=== PATIENT | female | born 1970 | race Caucasian/White ===

== ENCOUNTER → 2020-07-25 | Outpatient (REF) | LOC: M EMPSSV 06:50 | PROVIDERS: ATTEND Family Medicine | DX: Z20.828 Contact with and (suspected) exposure to other viral communicable diseases (principal) ==

== ENCOUNTER → 2020-09-18 | Outpatient (REF) | payer SELFPAY ==
[~2020-09-18] MED LIST: KETO10TAB PO; MEDR4PAK PO; SYMB16INH
== END ==
LOC: M LABSMTC 11:53 → EDSTATUS 11:55
PROVIDERS: ATTEND Pediatrics
DX: Z20.828 Contact with and (suspected) exposure to other viral communicable diseases (principal)

== ENCOUNTER 2020-10-27 12:48 | Emergency (ER) | payer BC, SELFPAY ==
[~2020-10-27] VITALS: Ht 167.6 cm; Wt 77.3 kg
[2020-10-27] MEDS ORDERED: SYMB16INH (13:09)
[2020-10-27] MEDS ORDERED: KETOROLAC 30 MG/ML 1ML VIAL IM ONE (14:00)
[2020-10-27] MEDS ORDERED: ACETAMINOPHEN 325 MG TAB PO ONE (14:00)
[2020-10-27] MEDS ORDERED: MEDR4PAK PO (14:50)
[2020-10-27] MEDS ORDERED: KETO10TAB PO (14:50)
[2020-10-27 15:15] VITALS: BP 153/84
== END 2020-10-27 15:16 | disposition home or self-care (01) ==
LOC: M ED 12:48
DX: M54.41 Lumbago with sciatica, right side (principal)
CPT/HCPCS: 96372; 99283; J1885